=== PATIENT | female | born 1955 | race African-American/Black ===

== ENCOUNTER → 2024-03-23 11:29 | Outpatient (REF) | payer OTHER, SELFPAY | LOC: HWRAD 11:29 | PROVIDERS: ATTENDING PHYSICIAN Family Medicine | DX: M54.16 Radiculopathy, lumbar region (principal) | CPT/HCPCS: 72110 ==

== ENCOUNTER → 2024-10-03 07:09 | Outpatient (REF) | payer OTHER, SELFPAY | LOC: WDC 07:09 | PROVIDERS: ATTENDING PHYSICIAN Family Medicine | DX: Z12.31 Encounter for screening mammogram for malignant neoplasm of breast (principal) | CPT/HCPCS: 77063; 77067 ==

== ENCOUNTER → 2024-10-07 08:36 | Outpatient (REF) | payer OTHER, SELFPAY | LOC: PAVMRI 08:36 | PROVIDERS: ATTENDING PHYSICIAN Family Medicine | DX: M54.16 Radiculopathy, lumbar region (principal) | CPT/HCPCS: 72148 ==

== ENCOUNTER 2025-01-03 06:21 | Day surgery (SDC) | payer OTHER, SELFPAY ==
[2024-12-15 09:17] LABS: Hematocrit 40.8 % (37.0-47.0); Hemoglobin 13.6 g/dL (12.0-16.0); Mean Corp Hgb Conc. 33.3 g/dL (33.0-37.0); Mean Corpuscular Hgb 26.8 pg (27.0-31.0); Mean Corpuscular Volume 80.5 fL (81.0-99.0); Mean Platelet Volume 12.6 fL (7.4-10.4); Platelet Count 194 10^3/uL (130-400); Red Blood Cell Count 5.07 10^6/uL (4.20-5.40); Red Cell Dist. Width 13.5 % (11.5-14.5); White Blood Cell Count 6.1 10^3/uL (4.8-10.8)
[2024-12-15 09:58] LABS: ALT (SGPT) 18 U/L (0-35); AST (SGOT) 23 U/L (14-36); Alkaline Phosphatase 93 U/L (38-126); Blood Urea Nitrogen 11 mg/dl (7-17); Carbon Dioxide 27 mmol/L (22-30); Chloride 104 mmol/L (98-107); Glucose 103 mg/dl (70-99); Potassium 4.3 mmol/L (3.5-5.1); Sodium 141 mmol/L (135-145); Total Bilirubin 1.2 mg/dl (0.2-1.3); Total Protein 7.4 g/dl (6.3-8.2); eGFR > 60.00
[2024-12-15 13:44] VITALS: BMI 30.8
[2025-01-03] VITALS (17 sets, daily range): BP systolic 110–147; BP diastolic 58–87; PULSE 86; O2SAT 94; BMI 30.8
[2025-01-03 07:46] LABS: Glucose - Point of Care 105 mg/dl (70-99)
[2025-01-03] MEDS: LYRICA 150 MG PO (07:55)
[2025-01-03] MEDS: CELEBREX 200 MG PO (07:56)
[2025-01-03] MEDS: TYLENOL 1000 MG PO ×2 (07:56→15:46)
[2025-01-03] MEDS: METHOCARBAMOL 1500 MG PO (07:56)
[2025-01-03] MEDS: NORMOSOL-R/PLASMALYTE-A 1000 IV ×2 (08:20→15:47)
[2025-01-03] MEDS: SUBLIMAZE 50 MCG IV (10:49)
[2025-01-03 11:01] LABS: Glucose - Point of Care 142 mg/dl (70-99)
[2025-01-03] MEDS: SUBLIMAZE 25 MCG IV ×2 (11:19→12:22)
--- NOTE | 2025-01-03 12:18 | W.PN.UPDATE ---
Update Note
Progress Note Update
Lumbar spondylolisthesis s/p L4-L5 PSF w/ [facility] 01/03/25
DVT prophylaxis - b/l SCDs/TEDS
NIDDM - monitor BS
- + SSI
- Resume Ozempic upon d/c
GERD - add Pepcid HS
Hypercholesterolemia
Thyroid nodules, being monitored serially
Glaucoma
Anxiety/depression
Obesity, BMI 30.8
[2025-01-03 13:57] LABS: Glucose - Point of Care 112 mg/dl (70-99)
[2025-01-03] MEDS: VANCOCIN 200 IV (14:58)
[2025-01-03] MEDS: ZOFRAN 4 MG IV (14:59)
[2025-01-03] MEDS: ROXICODONE 10 MG PO (15:44)
[2025-01-03] MEDS: ULTRAM PO ×2 (15:45→17:38)
--- NOTE | 2025-01-03 15:45 | PTCARENOTE ---
Patient arrived to unit from PACU s/p L4-L5 PSF. Patient is pleasant, AAOX4 and neurologically intact. Presently nauseous. Had just received IV Zofran in PACU, would rather avoid Compazine at this point. PT at bedside to evaluate.
--- NOTE | 2025-01-03 15:55 | PTCARENOTE ---
Attempted to administer 10mg Oxy IR to patient. Patient initially took with Tylenol, and shortly there after (maybe two minutes), patient vomited about 200mL bile. Likely did not consume/process Oxy IR. Reaching out to MD for different pain
medication modality.
[2025-01-03] MEDS: FLORASTOR PO (16:56)
[2025-01-03] MEDS: WELLBUTRIN XL (24 hour extended release) PO (16:56)
[2025-01-03] MEDS: VITAMIN D3 (cholecalciferol) PO (16:56)
[2025-01-03 17:03] LABS: Glucose - Point of Care 156 mg/dl (70-99)
[2025-01-03 21:29] LABS: Glucose - Point of Care 126 mg/dl (70-99)
[2025-01-03] MEDS: ZESTRIL 2.5 MG PO (22:10)
[2025-01-03] MEDS: COLACE 100 MG PO (22:10)
[2025-01-03] MEDS: SENOKOT PO (22:11)
[2025-01-03] MEDS: LYRICA 75 MG PO (22:11)
[2025-01-03] MEDS: TYLENOL PO (22:11)
[2025-01-03] MEDS: MORPHINE SULFATE 1 MG IV (22:12)
[2025-01-04] MEDS: ULTRAM 50 MG PO ×2 (00:20→05:11)
[2025-01-04] MEDS: NORMOSOL-R/PLASMALYTE-A 1000 IV (00:21)
[2025-01-04] MEDS: TYLENOL PO (02:24)
[2025-01-04 03:20] VITALS: BP 113/70
--- NOTE | 2025-01-04 06:08 | PTCARENOTE ---
Pt OOB to bedside commode, pt voiding without difficulty. Lower back dressing C/D/I. Pt reports pain at a 610. See MAR. Pt positioned in bed per comfort. IVF infusing as ordered. No issues to report at this time. Neuro checks as documented. Will
continue to monitor.
[2025-01-04 07:45] VITALS: BP 129/76
[2025-01-04 07:45] LABS: Glucose - Point of Care 103 mg/dl (70-99)
[2025-01-04 07:45] LABS: Hematocrit 34.4 % (37.0-47.0); Hemoglobin 11.7 g/dL (12.0-16.0)
[2025-01-04] MEDS: SENOKOT 17.2 MG PO (07:53)
[2025-01-04] MEDS: COLACE 100 MG PO (07:54)
[2025-01-04] MEDS: ROXICODONE 5 MG PO ×2 (07:54→12:32)
[2025-01-04] MEDS: TYLENOL 1000 MG PO ×2 (07:54→14:11)
[2025-01-04] MEDS: FLORASTOR 250 MG PO (07:54)
[2025-01-04] MEDS: WELLBUTRIN XL (24 hour extended release) 150 MG PO (07:54)
[2025-01-04] MEDS: VITAMIN D3 (cholecalciferol) 50 MCG PO (07:54)
[2025-01-04] MEDS: LYRICA 75 MG PO (07:55)
--- NOTE | 2025-01-04 07:58 | W.DS.TRANS ---
DC Summary - Group Director
-
Discharge Instructions:
Sleep Apnea Risk Low
Discharge Diagnosis/Procedures Lumbar spondylolisthesis s/p L4-L5 posterior
spinal fusion w/ Dr [facility] 01/03/25
Diet Diabetic, Carb Controlled
Activity As tolerated
Additional Activity No heavy lifting >10 lbs
Driving Restrictions Not until seen by your Dr
Bathing Restrictions OK to shower in 4 days
Instructions:
Stand-Alone Forms: [facility].
Changes to Home Medications: No
Discharge Medications:
DC Medications w/original date entered in [employer]
Culturelle 1 dose PO DAILY 12/28/24
Focus Factor 1 dose PO DAILY 12/28/24
Restore Cannibus Lotion 1 dose topical PRN PRN back pain 12/28/24
bupropion HCl 150 mg 24 hr tablet, extended release (Wellbutrin XL) 150 mg PO DAILY 12/28/24
cholecalciferol (vitamin D3) 25 mcg (1,000 unit) tablet (Vitamin D3) 50 mcg PO DAILY 12/28/24
docusate sodium 100 mg capsule (Colace) 100 - 200 mg PO DAILY Constipation 12/28/24
lidocaine 4 % topical cream 1 applic topical BID PRN back pain 12/28/24
lisinopril 2.5 mg tablet 2.5 mg PO HS 12/28/24
rosuvastatin 40 mg tablet 40 mg PO QPM 12/28/24
semaglutide 0.25 mg or 0.5 mg (2 mg/3 mL) subcutaneous pen injector (Ozempic) 0.25 mg SC QWEEK 12/28/24
oxycodone 5 mg tablet 5 - 10 mg (1 - 2 x 5 mg) PO Q6H PRN moderate-severe pain #30 tabs 01/03/25
pregabalin 75 mg capsule 75 mg PO Q12H neuropathic pain #15 caps 01/03/25
Home Medication Changes
Pending Results: No
--- NOTE | 2025-01-04 07:59 | W.PN.SP ---
Today's Communication / Plan
-
s/p fusion
Doing well
Pt
D/c
Subjective / Objective
Subjective Data
Pt doing well
Denies weakness
Legs better
Objective Data
Vital Signs
Temp Pulse Resp BP Pulse Ox
98.0 F 65 16 113/70 94
01/04/25 03:20 01/04/25 03:20 01/04/25 03:20 01/04/25 03:20 01/04/25 03:20
Intake and Output
01/03/25 01/04/25 01/05/25
06:59 06:59 06:59
Intake Total 1930 / 1930
Output Total 250 / 250
Balance 1680 / 1680
Intake:
Oral fluids 480 / 480
IV fluids (Total) 1450 / 1450
normosol 250 / 250
Output:
Urine, Voided 250 / 250
Other:
Number of approximated MODERATE 2
amounts of urine
Number of approximated LARGE 3
amounts of urine
Lab Data
01/04/25 07:15
Physical Exam
-
Both LE 4-5/5
[2025-01-04 08:19] LABS: Blood Urea Nitrogen 9 mg/dl (7-17); Calcium 9.3 mg/dl (8.4-10.2); Carbon Dioxide 26 mmol/L (22-30); Chloride 112 mmol/L (98-107); Estimated Creatinine Clearance 87 ml/min; Glucose 108 mg/dl (70-99); Sodium 145 mmol/L (135-145); eGFR > 60.00
--- NOTE | 2025-01-04 08:44 | W.PN.ORTHO ---
Today's Communication / Plan
-
Await PT and OT recs.
D/c later today if remaining clinically stable.
Assessment
.
Distal Motor Intact: Yes
Dressing:
Clean, dry and intact.
Assessment:
Lumbar spondylolisthesis s/p L4-L5 PSF w/ [facility] 01/03/25
DVT prophylaxis - b/l SCDs/TEDS
PONV immediately after surgery - improved w/ IV Zofran x1 - will Rx PO Zofran prn upon d/c
NIDDM - BS readings overall stable w/o need for SSI AC
- Can resume Ozempic upon d/c
GERD - added Pepcid HS
Hypercholesterolemia
Thyroid nodules, being monitored serially
Glaucoma
Anxiety/depression
Obesity, BMI 30.8
Plan
.
Surgery / Date: L4-L5 PSF w/ [facility] 01/03/25
DVT Prophylaxis: Other (b/l SCDs/TEDS)
Activity:
Out of bed.
PT/OT
Discharge Plan: Home
Subjective
.
.:
Patient examined resting in bed this AM.
Incisional pain 05/20 currently - was medicated w/ Oxycodone by RN.
Denies any new significant complaints. Nausea from yesterday improved.
AM labs overall stable.
Eager for potential d/c today.
Vital Signs and Labs
.
Vital Signs and Labs:
Lab Results
01/04/25 07:15
01/04/25 07:15
Temp Pulse Resp BP Pulse Ox
97.6 F 91 18 129/76 92
01/04/25 07:45 01/04/25 07:45 01/04/25 07:45 01/04/25 07:45 01/04/25 07:45
Physical Exam
-
HEENT: No pallor, cyanosis, or jaundice. Throat clear.
NECK: Neck supple. No JVD.
RESPIRATORY: Lungs clear to auscultation.
CVS: S1, S2 normal. RRR.�
ABDOMEN: Soft, non-tender. No distension. Obese.
EXTREMITIES: Strength equal, no calf pain with palpation/dorsiflexion. Calves soft.
GERIATRIC NURSE PRACTITIONER: AOx3. No focal deficits. corrugator operator helper grossly intact
--- NOTE | 2025-01-04 08:54 | W.DS.TRANS ---
DC Summary - Pharmacy Clinical Coordinator
-
Discharge Instructions:
Sleep Apnea Risk Low
Discharge Diagnosis/Procedures Lumbar spondylolisthesis s/p L4-L5 posterior
spinal fusion w/ Dr [facility] 01/03/25
Diet Diabetic, Carb Controlled
Activity As tolerated
Additional Activity No heavy lifting >10 lbs
Driving Restrictions Not until seen by your Dr
Bathing Restrictions OK to shower in 4 days
Instructions:
Stand-Alone Forms: [facility] D/C [facility].
Changes to Home Medications: Yes
Discharge Medications:
DC Medications w/original date entered in [employer]
Culturelle 1 dose PO DAILY 12/28/24
Focus Factor 1 dose PO DAILY 12/28/24
bupropion HCl 150 mg 24 hr tablet, extended release (Wellbutrin XL) 150 mg PO DAILY 12/28/24
cholecalciferol (vitamin D3) 25 mcg (1,000 unit) tablet (Vitamin D3) 50 mcg PO DAILY 12/28/24
rosuvastatin 40 mg tablet 40 mg PO QPM 12/28/24
acetaminophen 500 mg tablet (Tylenol Extra Strength) 1,000 mg (2 x 500 mg) PO Q6H #60 tabs 01/03/25
clindamycin HCl 300 mg capsule 300 mg PO Q6H #20 caps 01/03/25
docusate sodium 100 mg capsule 100 mg PO BID #30 caps 01/03/25
famotidine 20 mg tablet 20 mg PO HS #30 tabs 01/03/25
lisinopril 2.5 mg tablet 2.5 mg PO HS #1 tab 01/03/25
ondansetron HCl 4 mg tablet 4 mg PO Q6H PRN nausea and vomiting #30 tabs 01/03/25
oxycodone 5 mg tablet 5 - 10 mg (1 - 2 x 5 mg) PO Q6H PRN moderate-severe pain #30 tabs 01/03/25
pregabalin 75 mg capsule 75 mg PO Q12H neuropathic pain #15 caps 01/03/25
semaglutide 0.25 mg or 0.5 mg (2 mg/3 mL) subcutaneous pen injector (Ozempic) 0.25 mg (0.368 mL) SC MO #0 mL 01/03/25
sennosides 8.6 mg tablet (Eunice-toshia) 17.2 mg (2 x 8.6 mg) PO BID #30 tabs 01/03/25
Home Medication Changes
acetaminophen 500 mg tablet (Tylenol Extra Strength) 1,000 mg (2 x 500 mg) PO Q6H #60 tabs 01/03/25
clindamycin HCl 300 mg capsule 300 mg PO Q6H #20 caps 01/03/25
docusate sodium 100 mg capsule 100 mg PO BID #30 caps 01/03/25
famotidine 20 mg tablet 20 mg PO HS #30 tabs 01/03/25
ondansetron HCl 4 mg tablet 4 mg PO Q6H PRN nausea and vomiting #30 tabs 01/03/25
oxycodone 5 mg tablet 5 - 10 mg (1 - 2 x 5 mg) PO Q6H PRN moderate-severe pain #30 tabs 01/03/25
pregabalin 75 mg capsule 75 mg PO Q12H neuropathic pain #15 caps 01/03/25
semaglutide 0.25 mg or 0.5 mg (2 mg/3 mL) subcutaneous pen injector (Ozempic) 0.25 mg (0.368 mL) SC MO #0 mL 01/03/25
sennosides 8.6 mg tablet (Eunice-toshia) 17.2 mg (2 x 8.6 mg) PO BID #30 tabs 01/03/25
Pending Results: No
[2025-01-04 10:03] VITALS: BP 121/72; BP 125/81; PULSE 89; O2SAT 97
--- NOTE | 2025-01-04 10:34 | CM ---
Initial assessment completed
Pt lives with her in a 3 story condo; 2STE, 8 steps to 2nd fl. + 1/2 bath on FF
Independent, works from home. drives
DME - none
SNF/HH - denies past hx
Has ride - to transport
PCP - [facility]
Pharm - [facility]
Plan - home no needs
[2025-01-04 11:10] VITALS: BP 128/75
[2025-01-04 11:48] LABS: Glucose - Point of Care 86 mg/dl (70-99)
[2025-01-04 14:03] VITALS: BP 116/66
== END 2025-01-04 14:15 | disposition home or self-care (01) ==
LOC: SDS 06:21
PROVIDERS: Physician Assistant; ATTENDING PHYSICIAN Orthopaedic Surgery Orthopaedic Surgery of the Spine; FAMILY PHYSICIAN Family Medicine
DX: M43.16 Spondylolisthesis, lumbar region (principal); M48.061 Spinal stenosis, lumbar region without neurogenic claudication
CPT/HCPCS: 22612; 20930; 36415; 72100; 76000; 80048; 80053; 82962; 85014; 85018; 85027; 86850; 86900; 86901; 87070; 93005; 97116; 97162; 97167; 97530; 97535; C1713; C1776

== ENCOUNTER → 2025-09-21 10:38 | Outpatient (REF) | payer OTHER, SELFPAY | LOC: WDC 10:38 | PROVIDERS: ATTENDING PHYSICIAN Family Medicine | DX: Z12.31 Encounter for screening mammogram for malignant neoplasm of breast (principal) | CPT/HCPCS: 77063; 77067 ==